=== PATIENT | male | born 1945 | race Caucasian/White ===

== ENCOUNTER 2021-09-26 22:58 | Emergency (ER) | payer MEDICARE ==
[2021-09-27] MEDS ORDERED: hydrOXYzine PAMOATE 25 MG CAPSULE PO STA (01:10)
--- NOTE | 2021-09-27 01:13 | ED Physician Documentation ---
History of Present Illness - Stated complaint Stated Complaint: NUMBNESS - Chief complaint Chief Complaint: General - History obtained from History obtained from: Patient - History of Present Illness Timing: Other (one month ago) - Additonal information Additional information: 75-year-old male living in the homeless [facility] home has developed a rash to his back that has been the been bothering him for about a month. He is having a lot of itching with this and is coming to the emergency department this evening for evaluation. He has not otherwise been ill. Review of Systems Constitutional: denies: Fever Ears: denies: Ear pain Nose: denies: Congestion Respiratory: denies: Cough GI: denies: Vomiting, Diarrhea Skin: reports: Rash Musculoskeletal: denies: Neck pain, Back pain, Extremity pain PD PAST MEDICAL HISTORY - Present Medications Home Medications: Ambulatory Orders Medication Instructions Recorded Confirmed Permethrin 5% Cream [Permethrin 30 gm TOP ONCE #60 ml 09/27/21 Cream] hydrOXYzine pamoate [Hydroxyzine 25 - 50 mg PO Q6HR PRN #30 cap 09/27/21 Pamoate] - Allergies Allergies/Adverse Reactions: Allergies Allergy/AdvReac Type Severity Reaction Status Date / Time No Known Drug Allergies Allergy Verified 09/26/21 23:13 PD ED PE NORMAL - Vitals Vital signs reviewed: Yes (Hypertensive) - General General: Alert and oriented X 3, No acute distress, Well developed/nourished - HEENT HEENT: Atraumatic, PERRL, EOMI - Respiratory Respiratory: No respiratory distress - Derm Derm: Normal color, Warm and dry, Other (There are multiple plaque like erythematous macules about 5 mm diameter over the lateral aspect of the back bilaterally and over the abdomen anteriorly. Consistent with scabies) - Extremities Extremities: No deformity - Neuro Neuro: Alert and oriented X 3, car shakeout operator 2-12 intact, No motor deficit, No sensory deficit, Normal speech Eye Opening: Spontaneous Motor: Obeys Commands Verbal: Oriented GCS Score: 15 - Psych Psych: Normal mood, Normal affect Results - Vitals Vitals: Vital Signs - 24 hr 09/26/21 23:12 Temperature 35.9 C L Heart Rate 89 Respiratory 17 Rate Blood Pressure 158/102 H O2 Saturation 96 Oxygen O2 Source Room air PD MEDICAL DECISION MAKING - ED course Complexity details: considered differential, d/w patient ED course: 75-year-old homeless male with excoriated erythematous plaques consistent with scabies is administered hydroxyzine we will E scribe some hydroxyzine and permethrin. He is amdinistered a dose of hydroxyzine in the ED. Departure - Departure Disposition: 01 Home, Self Care Clinical Impression: Scabies Condition: Stable Instructions: ED Scabies Follow-Up: Guanaco Poe [Physician No Access] - Prescriptions: hydrOXYzine pamoate [Hydroxyzine Pamoate] 25 - 50 mg PO Q6HR PRN #30 cap PRN Reason: Itching Permethrin 5% Cream [Permethrin Cream] 30 gm TOP ONCE #60 ml Comments: Guanaco, today it looks like you have scabies. This is an infestation with a small might that your body has had a reaction to. The treatment for it is to use the permethrin cream to put this over your body and leave it on overnight and shower in the morning. This treatment will need to be repeated in 1 week. In the meantime laundering of all of your clothes and bedding is imperative. I have E scribed these medications to [facility] in [place] and I have given you the name of a physician in [place] to follow-up with.
[2021-09-27 01:26] VITALS: BP 149/91
== END 2021-09-27 01:39 | disposition home or self-care (01) ==
LOC: ED 22:58
DX: B86 Scabies (principal); Z59.00 Homelessness unspecified
CPT/HCPCS: 99282; A9270